=== PATIENT | male | born 1960 | race Caucasian/White ===

== ENCOUNTER 2024-05-14 17:47 | Emergency (ER) | payer OTHER, SELFPAY ==
--- NOTE | ~2024-05-14 | MR_ITS ---
CLINICAL HISTORY: lower back pain LLE weakness, difficulty ambulatin MR lumbar spine without gadolinium Comparison: None Findings: No scoliosis or spondylolisthesis. Iatrogenic findings with artifact from surgical hardware at L4-L5. No acute fracture or pathologic bone lesion. Cauda equina and conus medullaris within normal limits. Multiple level broad-based degenerative disc bulge and degenerative facet change. No stenoses. Paraspinous musculature intact. IMPRESSION: No acute findings. This document has been electronically signed by: Codey Phan MD on 05/14/2024 20:10:04
--- NOTE | 2024-05-14 18:05 | ED.GENADULT ---
HPI - General Adult General Chief complaint: Back Pain/Injury Stated complaint: MRI Time Seen by Provider: 05/14/24 17:55 Source: patient and family Mode of arrival: ambulatory Limitations: no limitations History of Present Illness ED Provider: JOELLE Freeman HPI narrative: This is a 63-year-old male who presents with lower back pain with weakness to left lower extremity. Patient reports he has had back pain for a few months however pain has been worsening. Related Data Previous Rx's ?Medication ?Instructions ?Recorded oxycodone 5 mg capsule 5 mg PO Q8H PRN pain #14 caps 05/14/24 Allergies Allergy/AdvReac Type Severity Reaction Status Date / Time No Known Allergies Allergy Verified 05/14/24 18:45 Review of Systems Review of Systems: Yes all other systems are reviewed and are negative [facility] Past Medical History Attestation statement: The following information was validated with the patient. Source: old records reviewed and nursing notes reviewed Social History Social History Smoked in Last 30 Days: No Use of substances other than those prescribed or required for medical reasons: No Advance Directives: No Advance Directives Information Provided: Yes Do you have a plan to hurt others: No Plan Physical Exam ED Vital Signs: Vital Signs - 24 hr 05/14/24 18:17 05/14/24 20:36 Temperature 98.9 F 98.9 F Pulse Rate 88 88 Respiratory Rate 16 16 Blood Pressure 148/84 H 148/84 H Pulse Oximetry 95 95 Oxygen Delivery Method Room Air Room Air BMI result Body Mass Index 33.9 vss Appearance: Alert.? Oriented X3.? No acute distress.? Head: Normocephalic, atraumatic, no step-offs or deformities Eyes: Pupils equal, round and reactive to light.? Neck: Normal inspection.? Neck supple.? CVS: Normal heart rate and rhythm.? Pulses normal.? Respiratory: No respiratory distress.? Breath sounds normal.? Abdomen: Soft and nontender.? Skin: Skin warm and dry.? Normal skin color.? Normal skin turgor.? Extremities: No lower extremity edema.? No calf ttp. 5/5 strength to bilateral upper extremities 5/5 strength to RLE 2/5 strength to LLE. + diminished sensation to l anterior thigh Back: No midline tenderness, no C-spine tenderness, full range of motion, no CVA tenderness bilaterally Neuro: Oriented X 3.? No motor deficit.? No sensory deficit. CN 2-12 intact Course Reevaluation(s) Reevaluation #1: MRI of the lumbar spine no acute findings. Cauda equina or conus medullaris within normal limits. Multilevel broad-based degenerative disc bulge and degenerative facet changes. No stenosis. Musculature intact. CBC with a normocytic anemia. Chemistry with mild elevation in BUN and creatinine 21 and 1.25. CRP 1.36 nonspecific. No signs of infection. Will give patient MRI report and disc he will follow up with Neurosurgery. I also follow this patient on an outpatient basis advised him to follow up with me outpatient at [facility]. He does have significant weakness to left lower extremity associated with back pain. This is not consistent with stroke. No other neurological findings. Educated patient on diagnosis and treatment plan, answered all question, patient verbalizes understanding. At this time patient will be discharged home, advised to return with new or worsening symptoms. Educated on worrisome signs and symptoms and when to return. At this time I feel comfortable discharge home. Time: 20:49 Medications Administered Discontinued Medications Generic Name Dose Route Start Last Admin Trade Name Freq PRN Reason Stop Dose Admin Oxycodone HCl 5 mg 05/14/24 18:22 05/14/24 18:39 Oxycodone Hcl Immed Release 5 Mg Tablet PO 05/14/24 18:23 5 mg ONCE ONE Administration Medical Decision Making Medical Decision Making [facility] Narrative: 1804 63-year-old male presents with low back pain and left lower extremity weakness acutely worsening as of recently. Physical exam with lumbosacral tenderness to palpation on exam, 2/5 strength to left lower extremity, 5/5 strength to right. Decreased sensation to left anterior thigh. History physical exam concerning for possible cord compression to lumbar region possibly L4- L5, L5- S1. Cauda equina less likely. Unlikely epidural abscess. Plan- labs, inflammatory markers & MRI lumbar spine Differential Diagnosis Differential Diagnoses: The differential diagnosis associated with the presentation includes (History physical exam concerning for possible cord compression to lumbar region possibly L4- L5, L5- S1. Cauda equina less likely. Unlikely epidural abscess. ) Admission/Observation Consideration of admission/observation: Escalation of care including admission/observation considered Lab Data [facility] Lab Attestation statement: I reviewed the patient's lab results. 05/14/24 20:13 05/14/24 20:13 Labs: Lab Results 05/14/24 Range/Units 20:13 WBC 10.4 (4.8-10.8) X10*3/uL RBC 4.24 L (4.60-5.80) X10*6/uL Hgb 13.5 L (14.0-18.0) g/dl Hct 37.7 L (42.0-52.0) % MCV 88.9 (80.0-98.0) fL MCH 31.8 (27.0-33.0) pg MCHC 35.8 (31.0-36.0) g/dl RDW 13.1 (11.0-16.0) % Plt Count 242 (160-400) X10*3/uL MPV 10.0 (9.4-12.4) fL Immature Gran % (Auto) 3.6 H (0.0-0.4) % Neut % (Auto) 63.8 (45-73) % Lymph % (Auto) 20.3 (20-40) % Davis % (Auto) 9.3 (2-11) % Eos % (Auto) 2.3 (0-4) % Baso % (Auto) 0.7 (0-2) % Lymph # (Auto) 2.1 (1.2-4.9) X10*3/uL Davis # (Auto) 1.0 (0.1-1.2) X10*3/uL Eos # (Auto) 0.2 (0.0-0.4) X10*3/uL Baso # (Auto) 0.1 (0.0-0.2) X10*3/uL Abs Immat Gran (auto) 0.37 H (0.00-0.03) X10*3/uL Absolute Neuts (auto) 6.6 (2.0-8.3) x10*3/uL Absolute Nucleated RBC 0.000 (0.0-0.012) X10*3/uL Nucleated RBC % (auto) 0.0 (0.0-0.2) /100WBC Sodium 144 (135-145) mmol/L Potassium 4.2 (3.3-5.1) mmol/L Chloride 115 H (96-108) mmol/L Carbon Dioxide 24 (22-29) mmol/L Anion Gap 9 L (12-20) BUN 21 H (9-16) mg/dL Creatinine 1.25 (0.5-1.4) mg/dL Estim Creat Clear Calc 66.1 Estimated GFR 59 Random Glucose 126 H (60-115) mg/dL Calcium 9.2 (8.4-10.2) mg/dL Magnesium 1.8 (1.6-2.6) mg/dL Total Bilirubin 0.3 (0.0-1.0) mg/dL AST 26 (5-37) U/L Alkaline Phosphatase 81 (39-117) U/L C-Reactive Protein 1.36 H (< or = 0.50) mg/dL Total Protein 6.4 L (6.5-8.0) g/dL Albumin 3.9 (3.5-5.0) g/dL Independent Interpretation Interpretation: MRI Independent Historian Clinical information obtained from an independent historian. History obtained from or confirmed by: Spouse External Record Review External record reviewed: Outpatient record Chronic Conditions Patient?s care impacted by: Other (obesity, lumbar radiculopathy ) Critical Care Time Critical Care Time Critical Care Time: Yes Total Critical Care Time: 35 Attestation: I attest to this time spent taking care of the patient, obtaining history, physical, reviewing labs, imaging, treatment of patients condition +/- specialist/hospitalist consult +/- procedure Discharge Plan Discharge Clinical Impression: Lumbar radiculopathy, Left leg weakness Patient Disposition: Home, Self-Care Instructions: Lumbar Radiculopathy (ED), Back Pain (ED), Lower Back Exercises (ED) Additional Instructions: Take your medications as prescribed. If you were prescribed antibiotics today, it is important that you take your medication to their entirety, do not skip any doses, do not finish them early. Follow-up with your primary care provider this week. Return to the emergency department with new or worsening symptoms. Such as fevers, chills, chest pain, shortness of breath, nausea, vomiting, dizziness, headache, vision changes, lethargy In case of emergency call 911 A narcotic has been sent to your pharmacy please take this as prescribed. Do not take more than the prescribed dose. Narcotic medications can cause addiction. Please do not mix them with alcohol. Do not take them while driving or operating machinery. Do not take them with any other narcotics. Do not share them with friends or family. They can cause constipation. Take them only for severe pain. MR lumbar spine without gadolinium Comparison: None Findings: No scoliosis or spondylolisthesis. Iatrogenic findings with artifact from surgical hardware at L4-L5. No acute fracture or pathologic bone lesion. Cauda equina and conus medullaris within normal limits. Multiple level broad-based degenerative disc bulge and degenerative facet change. No stenoses. Paraspinous musculature intact. IMPRESSION: No acute findings. Prescriptions: New oxycodone 5 mg capsule 5 mg PO Q8H PRN (Reason: pain) Qty: 14 0RF Rx Instructions: Partial Fill upon patient request. Referrals: [facility] [Provider Group] - 3 days KALEB SALGADO [Primary Care Provider] - 3 days Octavio Freeman PA [Emergency Midlevel Provider] - 2 days Stand Alone Forms: Work/School Release Interventions: ED Discharge Assessment Last Done: 05/14/24 20:36 Discharge Date/Time: 05/14/24 20:37 Print Language: Divehi
[2024-05-14 18:17] VITALS: BP 148/84; PULSE 88; RESP 16; TEMP 37.2; O2SAT 95
[2024-05-14 18:26] VITALS: BMI 33.9
[2024-05-14] MEDS: oxyCODONE HCl Immed Release 5 MG TABLET PO (18:39)
[2024-05-14 18:43] VITALS: BMI 33.9
[2024-05-14 20:19] LABS: MANUAL DIFF FLAG NO
[2024-05-14 20:27] LABS: Basophils Absolute Auto 0.1 X10*3/uL (0.0-0.2); Basophils Percent Auto 0.7 % (0-2); Eosinophils Absolute Auto 0.2 X10*3/uL (0.0-0.4); Eosinophils Percent Auto 2.3 % (0-4); Hematocrit 37.7 % (42.0-52.0); Hemoglobin 13.5 g/dl (14.0-18.0); Imm Gran Abs Auto 0.37 X10*3/uL (0.00-0.03); Imm Gran Pct Auto 3.6 % (0.0-0.4); Lymphocytes Absolute Auto 2.1 X10*3/uL (1.2-4.9); Lymphocytes Percent Auto 20.3 % (20-40); Mean Corpuscular HGB Conc 35.8 g/dl (31.0-36.0); Mean Corpuscular Hemoglobin 31.8 pg (27.0-33.0); Mean Corpuscular Volume 88.9 fL (80.0-98.0); Monocytes Percent Auto 9.3 % (2-11); Neutrophils Absolute Auto 6.6 x10*3/uL (2.0-8.3); Neutrophils Percent Auto 63.8 % (45-73); Platelet Count 242 X10*3/uL (160-400); Red Blood Count 4.24 X10*6/uL (4.60-5.80); Red Cell Distribution Width 13.1 % (11.0-16.0); White Blood Count 10.4 X10*3/uL (4.8-10.8)
[2024-05-14 20:36] VITALS: BP 148/84; PULSE 88; RESP 16; TEMP 37.2; O2SAT 95
[2024-05-14 20:42] LABS: Albumin Level 3.9 g/dL (3.5-5.0); Alkaline Phosphatase 81 U/L (39-117); Anion Gap 9 (12-20); Aspartate Amino Transferase 26 U/L (5-37); Bilirubin Total 0.3 mg/dL (0.0-1.0); Blood Urea Nitrogen 21 mg/dL (9-16); C Reactive Protein 1.36 mg/dL (< or = 0.50); Calcium 9.2 mg/dL (8.4-10.2); Carbon Dioxide 24 mmol/L (22-29); Chloride 115 mmol/L (96-108); Creatinine Clr Calc Pharmacy 66.1; Estimated Glomerular Filt Rate 59; Glucose Random 126 mg/dL (60-115); Magnesium 1.8 mg/dL (1.6-2.6); Potassium 4.2 mmol/L (3.3-5.1); Sodium 144 mmol/L (135-145); Total Protein 6.4 g/dL (6.5-8.0)
[2024-05-14 20:52] LABS: Alanine Aminotransferase 32 U/L (0-40)
[2024-05-14 21:25] LABS: Erythrocyte Sedimentation Rate 7 MM/HR (0-15)
== END 2024-05-14 20:37 | disposition home or self-care (01) ==
PROVIDERS: Physician Assistant; Emergency Provider Emergency Medicine; PCP Physician Assistant Medical
DX: M54.16 Radiculopathy, lumbar region (principal); R53.1 Weakness; M54.50 Low back pain, unspecified
CPT/HCPCS: 36415; 72148; 80053; 83735; 85025; 85652; 86140; 99284; 99285

== ENCOUNTER → 2024-05-14 18:04 | Outpatient (BNV) | payer OTHER, SELFPAY | PROVIDERS: Emergency Provider Emergency Medicine; PCP Physician Assistant Medical; Visit Provider Specialist | DX: M51.369 Other intervertebral disc degeneration, lumbar region without mention of lumbar back pain or lower extremity pain (principal) | CPT/HCPCS: 72148 ==